=== PATIENT | male | born 1980 | race Caucasian/White ===

== ENCOUNTER 2017-04-27 07:54 | Emergency (ER) | payer OTHER ==
[~2017-04-27] VITALS: Wt 72.0 kg
--- NOTE | 2017-04-27 08:52 | ERD ---
ER Documentation Chief Complaint Date/Time DATE: 04/27/17 TIME: 08:50 Chief Complaint BILATERAL EYE PAIN REDNESS HPI This a 36year-old male who presents the emergency department today complaining of bilateral eye redness and drainage that started yesterday. Patient states that approximately 1 week ago he went to the [place]. He states he started feeling sick after that and had some nasal congestion and sore throat. States he is concerned that he is contagious because his at home is . denies any fevers or chills. Denies any blurred vision or loss of vision ROS All systems reviewed and are negative except as per history of present illness. Medications Home Meds Active Scripts Fluticasone Propionate (Flonase Allergy Relief) 9.9 Ml [place].susp, 2 SPRAY NASAL DAILY, #1 BOTTLE TO EACH NOSTRIL Prov:JONNY CARRANZA PA-C 04/27/17 Polymyxin B Sulfate-TMP* (Polymyxin B-TMP Eye Drops*) 10 Ml Drops, 1 DROP BOTH EYES QID for 7 Days, EA Prov:JONNY CARRANZA PA-C 04/27/17 Amoxicillin/Potassium Clav (Amox-Clav 875-125 mg Tablet) 875-125 mg Tab, 1 TAB PO BID for 7 Days, #14 TAB Prov:JONNY CARRANZA PA-C 04/27/17 Physical Exam Vitals Vital Signs Date Time Temp Pulse Resp B/P Pulse Ox O2 Delivery O2 Flow Rate FiO2 04/27/17 08:01 98.0 78 18 122/71 99 Physical Exam Const: No acute distress Head: Atraumatic Eyes: Bilateral conjunctival erythema. With purulent drainage. ENT: Ears TMs normal. Nose no drainage. Left-sided maxillary tenderness. Throat with tonsillar erythema and one small area of right-sided tonsillar exudate Neck: Full range of motion..~ No meningismus. Resp: Clear to auscultation bilaterally. No absent breath sounds. No wheezing. Cardio: Regular rate and rhythm, no murmurs Abd: Soft, non tender, non distended. Normal bowel sounds Skin: No petechiae or rashes Neur: Awake and alert Psych: Normal Mood and Affect Procedures/MDM This a 28-year-old male who presents the emergency department today for bilateral eye redness and drainage and nasal congestion and sore throat. On physical exam patient had purulent drainage from both of his eyes. Symptoms most consistent with conjunctivitis possibly bacterial. I did obtain a visual acuity Visual acuity Left eye 20/20 Right eye 20/20 Bilateral 2020 Patient also had some left-sided maxillary tenderness he did appear to have one area of exudate on the right side of his throat although he did indicate that his throat did seem to be improving. Patient has signs and symptoms of a URI however given his physical exam I will treat the patient with Augmentin that would cover him for both strep pharyngitis and sinusitis. Patient also be given a prescription for Flonase. low suspicion for orbital cellulitis, acute narrow angle glaucoma, foreign body, globe rupture, hyphema peritonsillar abscess, retropharyngeal abscess, pneumonia, sepsis. At this time the patient is stable for discharge and outpatient management. Patient should follow up with their PCP in the next 1-2 days. They may return to the emergency department sooner for any persistent or worsening of symptoms. Patient understood and agreed with the plan. Departure Diagnosis: Primary Impression: Conjunctivitis Conjunctivitis type: unspecified Laterality: bilateral Qualified Code: H10.9 - Conjunctivitis of both eyes, unspecified conjunctivitis type Additional Impression: URI (upper respiratory infection) URI type: unspecified URI Qualified Code: J06.9 - Upper respiratory tract infection, unspecified type Condition: JONNY Chahal PA-C Apr 27, 2017 08:52
[2017-04-27] MEDS ORDERED: AMOX1TAB10 PO (08:58)
[2017-04-27] MEDS ORDERED: POLY10DR19 BOTH EYES (09:00)
[2017-04-27] MEDS ORDERED: FLUT9.9S NASAL (09:03)
== END 2017-04-27 09:13 | disposition home or self-care (01) ==
LOC: FTE 07:54
DX: H10.9 Unspecified conjunctivitis (principal); J06.9 Acute upper respiratory infection, unspecified
CPT/HCPCS: 99284